=== PATIENT | female | born 1970 | race Two or more races ===

== ENCOUNTER 2017-05-01 08:51 | Day surgery (SDC) | payer OTHER ==
[~2017-05-01] VITALS: Ht 160 cm; Wt 61.2 kg
[2017-05-01] MEDS ORDERED: LOSARTAN (09:43)
[2017-05-01] MEDS ORDERED: OMEPRAZOLE (09:43)
[2017-05-01] MEDS ORDERED: IBUPROFEN (09:43)
[2017-05-01 09:52] VITALS: Ht 160 cm; Wt 61.2 kg
[2017-05-01 10:05] VITALS: BP 175/97; PULSE 76; RESP 18
--- NOTE | 2017-05-01 10:37 | OPPN ---
Date/Time of Note Date/Time of Note DATE: 05/01/17 TIME: 10:36 Proc Note GI Procedure Date 05/01/17 Indication: diagnostic Pre-procedure Diagnosis Chronic heartburn Post-procedure Diagnosis Gastritis Biopsy from Z line at 35 cm to rule out Bailey's Procedure Performed: Endoscopy Surgeon see signature line Electrical And Instrument Mechanic none Anesthesia Type: moderate sedation Tourniquet Time none EBL none Transfusion required none Biopsy 1: 4 biopsies from stomach Grafts/Implants none Tubes/Drains none Complication(s) none Disposition: PACU Procedure Description Dictated ROSAMARIA HARPER MD May 01, 2017 10:37
[2017-05-01] MEDS ORDERED: MIDAZOLAM 1 MG/ML 2 ML INJ ONE ×3 (10:54)
[2017-05-01] MEDS ORDERED: FENTAnyl 50 MCG/ML VIAL ONE (10:54)
[2017-05-01 11:03] VITALS: BP 117/72; PULSE 72; RESP 19
--- NOTE | 2017-05-01 23:21 | GILP ---
DATE OF PROCEDURE: PROCEDURE: Esophagogastroduodenoscopy with biopsy. INDICATION: A 46-year-old female undergoing this procedure for chronic heartburn, not responding to PPI. The purpose is to evaluate the upper GI tract to find the severity of the GERD, and also rule out Bailey's esophagus. The risk of the procedure, related and unrelated complications, sedative risks, alternatives were di scussed with the patient, who understood it and gave informed consent. DESCRIPTION OF PROCEDURE: Patient was brought to the GI lab, placed in the left recumbent position, sedated with incremental doses of Versed and fentanyl. 4 mg of Versed, 100 mcg of fentanyl. After optimal dose, scope was passed with much ease into the esophagus. Z-line was at 35 cm, appea red to have migrated proximally. Biopsy was taken while coming out . Stomach mucosa revealed pangastritis. Multiple biopsies obtained to rule out H. pylori infection. Duodenum, first and seco nd part appeared normal. Retroversion in the stomach also was normal. Scope was straightened out a nd removed with good patient tolerance. IMPRESSION 1. Z-line at 35 cm which was regular. Biopsy taken to rule out Bailey's. 2. Ann gastritis. 3. Normal duodenum. PLAN: Review histopathology. If positive for H. pylori, she will be treated with antibiotic and if negative for Bailey's, then lifestyle modification and change in the medication for her GERD would help her. Dictated By: ROSAMARIA BARRERA/MIRNA Conf#: [id number] DID#: [id number]
== END 2017-05-01 11:56 | disposition home or self-care (01) ==
LOC: GIL 08:51
PROVIDERS: ATTEND Internal Medicine Gastroenterology
DX: K29.50 Unspecified chronic gastritis without bleeding (principal); K21.0 Gastro-esophageal reflux disease with esophagitis
CPT/HCPCS: 43239; 88305; 88312; 88313; J2250; J3010; Z7610